=== PATIENT | female | born 1980 | race Caucasian/White ===

== ENCOUNTER 2016-05-28 07:01 | Emergency (ER) | payer OTHER ==
[~2016-05-28] VITALS: Wt 92.5 kg
--- NOTE | 2016-05-28 07:33 | ERA ---
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 Patient claims her pain is 8 out of 10 and sharp in nature. Patient says she has never had any pain like this before. Patient's pain is relieved when leaning forwards and is worse when sitting up straight stretching stomach. Patient has a positive history of endometriosis. Patient has not done anything or taken any medications to relieve the pain to this point in time. Patient is sexually active and claims to have had her period last week. Patient's last bowel movement was 1-2 days ago. States that her regular bowel movements are about 1-2 times per week. Does not feel constipated or bloated. Patient denies any nausea, vomiting, anorexia, diarrhea, constipation, dysuria, hematuria, melena or trauma to the area. ROS All systems reviewed and are negative except as per history of present illness. Medications Home Meds Active Scripts Ibuprofen* (Motrin*) 600 Mg Tab, 600 MG PO Q6H Y for PAIN AND OR ELEVATED TEMP, #30 TAB Prov:MIKE SERRANO PA-C 05/28/16 Allergies Allergies: Coded Allergies: cefaclor (Verified Allergy, Unknown, 05/28/16) Physical Exam Vitals Vital Signs Date Time Temp Pulse Resp B/P Pulse Ox O2 Delivery O2 Flow Rate FiO2 05/28/16 07:06 96.6 82 17 125/60 99 Physical Exam Const: A tall well-appearing 36-year-old female presenting with her . Head: Atraumatic Eyes: Normal Conjunctiva ENT: Normal External Ears, Nose and Mouth. Neck: Full range of motion..~ No meningismus. Resp: Clear to auscultation bilaterally Cardio: Regular rate and rhythm, no murmurs Abd: Soft, non distended. Normal bowel sounds. Mild tenderness in the left lower quadrant. Skin: No petechiae or rashes Back: No midline or flank tenderness Ext: No cyanosis, or edema Neur: Awake and alert Psych: Normal Mood and Affect Results 24 hrs Laboratory Tests Test 05/28/16 07:40 Urine Color YELLOW Urine Clarity CLEAR Urine pH 6.0 Urine Specific Ferdinand 1.020 Urine Ketones NEGATIVE Urine Nitrite NEGATIVE Urine Bilirubin NEGATIVE Urine Urobilinogen 0.2 E.U./dL Urine Leukocyte Esterase NEGATIVE Urine Microscopic RBC 2-5/HPF Urine Microscopic WBC NONE SEEN/HPF Urine Epithelial Cells OCCASIONAL Urine Bacteria RARE Urine Mucus FEW Urine Hemoglobin 1+ Urine Glucose NEGATIVE% Urine Total Protein NEGATIVE Procedures/MDM Patient is a 36-year-old female complaining of left lower quadrant abdominal pain that is 8 out of 10 and sharp in nature. Patient is currently in no acute distress sitting up in the exam room. patient has a history of endometriosis. Patient's last menstrual cycle was last week. Patient has never had pain like this before denies any hematuria, dysuria, or changes in bowel movements. At this time I will go ahead and get a urinalysis and a test to rule out any ectopic , infectious process or stones. Will reevaluate. Patient saw ultrasound and lab results were unremarkable. At this time the most likely diagnosis is constipation versus abnormal pain from endometriosis. At this time I do not suspect any ovarian torsion, diverticular pathology, inflammatory bowel pathology, ectopic or internal hemorrhage. Patient on reevaluation again is in no acute distress; patient's abdominal exam is soft and nontender with mild left lower quadrant tenderness. 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 Departure Condition: Stable Additional Instructions: Follow-up with dust mill operator the next 1-3 days. Return to the emergency department if symptoms worsen or change. Have given the results of the ultrasound and labs for patient to present to her dust mill operator and primary care provider. MIKE SERRANO PA-C May 28, 2016 07:33
[2016-05-28 08:16] LABS: ADD UMIC YES; URINE BILIRUBIN (Dip) NEGATIVE (NEGATIVE); URINE BLOOD (Dip) 1+ (NEGATIVE); URINE COLOR YELLOW (YELLOW); URINE GLUCOSE (Dip) NEGATIVE (NEGATIVE); URINE KETONES (Dip) NEGATIVE (NEGATIVE); URINE LEUKOCYTE ESTERASE (Dip) NEGATIVE (NEGATIVE); URINE NITRITE (Dip) NEGATIVE (NEGATIVE); URINE TOTAL PROTEIN (Dip) NEGATIVE (NEGATIVE); URINE UROBILINOGEN (Dip) 0.2 E.U./dL (0.1-1.0)
[2016-05-28 08:50] LABS: BACTERIA,URINE RARE; MUCUS,URINE FEW
--- NOTE | 2016-05-28 09:55 | RADRPT ---
PROCEDURE: US Pelvis. CLINICAL INDICATION: Pelvic pain TECHNIQUE: Multiple sonographic images of the pelvis were obtained utilizing a transabdominal tech nique. Transvaginal imaging was not requested. The images were reviewed on a PACS workstation. COMPARISON: None. FINDINGS: The uterus is visualized and measures 7.5 x 3 x 6.1 cm in size. The endometrial echo complex is nor mal and measures 6.7 mm. There is a trace amount of free fluid. The right ovary is not visualized. Left ovarian cystic structures are seen with the largest measuring 3.4 x 3.6 x 3.1 cm in size and de monstrates low level echoes. The remainder of the left ovary has a normal echotexture and measures 7 .4 x 4.4 x 5.1 cm. No adnexal masses are noted. IMPRESSION: Left ovarian cystic structures with the largest likely representing a hemorrhagic cysts. In additio n, trace amount of free fluid in the pelvis. The findings are likely physiologic in nature. RPTAT: [facility] Physician Mansoor Date Time Electronically viewed and signed by Physician Mansoor on 05/28/2016 09:55 /
[2016-05-28] MEDS ORDERED: IBUP-1542 PO (10:04)
[2016-05-28 10:21] VITALS: BP 108/66; PULSE 68; RESP 16; TEMP 97.7
== END 2016-05-28 10:22 | disposition home or self-care (01) ==
LOC: FTE 07:01
DX: R10.32 Left lower quadrant pain (principal); R10.2 Pelvic and perineal pain
CPT/HCPCS: 76856; 81001; 81003; 99284